=== PATIENT | female | born 1950 | race Caucasian/White ===

== ENCOUNTER 2017-06-20 17:35 | Observation (INO) | payer OTHER ==
[~2017-06-20] VITALS: Ht 170.2 cm; Wt 92.5 kg
[2017-06-20] VITALS (8 sets, daily range): BP systolic 100–114; BP diastolic 58–87; PULSE 78–124; RESP 16–18; TEMP 97.2–98.5; O2SAT 96–98
[~2017-06-20 17:35] MED LIST: ENOX40IN SQ; HYDR-3516 PO
[2017-06-20] MEDS ORDERED: SODIUM CHLORIDE 0.9% FLUSH 10 ML FLUSH IV FLUSH PRN ×2 (18:15→21:15)
[2017-06-20] MEDS ORDERED: ALUMINUM/MAGNESIUM/SIMETH 30 ML CUP PO ONE (18:15)
[2017-06-20] MEDS ORDERED: ONDANSETRON HCL 4 MG/2 ML VIAL IVP ONE (18:15)
[2017-06-20] MEDS ORDERED: LIDOCAINE VISCOUS 2% SOLN 15 ML UDC SWISH-SWAL ONE (18:15)
[2017-06-20] MEDS ORDERED: ATROPINE/SCOPOLAM/HYOSCYAM/PB ELIXIR 10 ML CUP PO ONE (18:15)
--- NOTE | 2017-06-20 18:18 | PD ---
HPI Chief Complaint: GI Complaint Time Seen by Provider: 17:45 Travel History International Travel<30 days: No Contact w/Intl Traveler<30days: No Traveled to known affect area: No History of Present Illness HPI This is a 66-year-old female who presents to the emergency department with nausea and vomiting that's been going on for over a week. Patient reports that she had a knee surgery and broke her wrist and had been on hydrocodone up until 6 days ago. She noticed that she was getting constipated. She doesn't think she's had a bowel movement in 6 days. She been having persistent vomiting, severe, with associated abdominal fullness and a feeling of burning and reflux in her chest, with no associated fevers or chills. She says she feels very weak and she can eat or drink anything. She's never had any abdominal surgeries. She says she used a laxative, and enema and magnesium citrate today and she hasn't had a bowel movement despite this. PFSH Past Medical History Hx Anticoagulant Therapy: Yes Diabetes: No Immunizations Current: Yes Social History Alcohol Use: Yes (2/DAY) Tobacco Use: No (never) Substance Use: No Allergies-Medications (Allergen,Severity, Reaction): Coded Allergies: penicillin G (Unverified Allergy, Severe, 06/20/17) sulfamethoxazole (Unverified Allergy, Severe, 06/20/17) trimethoprim (Unverified Allergy, Severe, 06/20/17) Reported Meds & Prescriptions Reported Meds & Active Scripts Active No Active Prescriptions or Reported Medications Review of Systems Except as stated in HPI: all other systems reviewed are Neg Physical Exam Narrative GENERAL:Well appearing, no acute distress SKIN: Focused skin assessment warm and dry. HEAD: Atraumatic. Normocephalic. EYES: Pupils equal and round. Scleral icterus ENT: Moist mucous membranes. Some yellowing of her tongue. NECK: Trachea midline. CARDIOVASCULAR: Regular rate and rhythm. No murmur appreciated. RESPIRATORY: Clear to auscultation. Breath sounds equal bilaterally. GASTROINTESTINAL: Abdomen soft, hyperactive bowel sounds, diffusely mildly tender to palpation with no rebound or guarding. MUSCULOSKELETAL: Right wrist is in a splint. NEUROLOGICAL: Awake and alert. No obvious cranial nerve deficits. Moving all extremities. PSYCHIATRIC: Appropriate mood and affect; insight and judgment normal. Data Data Last Documented VS Vital Signs Date Time Temp Pulse Resp B/P (MAP) Pulse Ox O2 Delivery O2 Flow Rate FiO2 06/20/17 18:46 96 Room Air 06/20/17 17:42 98.5 109 16 108/72 (84) Orders Orders Complete Blood Count With Diff (06/20/17 18:01) Comprehensive Metabolic Panel (06/20/17 18:01) Lipase (06/20/17 18:) Urinalysis - C+S If Indicated (06/20/17 18:) Ct Abd/Pel W Iv Contrast(Rout) (06/20/17 18:01) Iv Access Insert/Monitor (06/20/17 18:) Ecg Monitoring (06/20/17 18:) Oximetry (06/20/17 18:) Ondansetron Inj (Zofran Inj) (06/20/17 18:15) Sodium Chloride 0.9% Flush (Ns Flush) (06/20/17 18:15) Al-Mag Hy-Si 40-40-4 Mg/Ml Liq (Mag-Al P (06/20/17 18:15) Lidocaine 2% Viscous (Xylocaine 2% Visco (06/20/17 18:15) Pmsku-Akunav-Wakxvd-Pb Liq ( Liq (06/20/17 18:15) Urine Culture (06/20/17 18:15) Direct Bilirubin (06/20/17 18:20) Tylenol (Acetaminophen) (06/20/17 18:53) Us Abdomen Gallbladder (06/20/17 ) Ciprofloxacin 400 Mg Premix (Cipro 400 M (06/20/17 19:00) Labs Laboratory Tests Test 06/20/17 18:15 06/20/17 18:20 Urine Color TERI Urine Turbidity CLEAR Urine pH 5.0 Urine Specific [place] 1.035 Urine Protein 30 mg/dL Urine Glucose (UA) 100 mg/dL Urine Ketones 80 OR GREATER mg/dL Urine Occult Blood TRACE Urine Nitrite POS Urine Bilirubin LARGE Urine Leukocyte Esterase TRACE Urine RBC 0-3 /hpf Urine WBC 15-19 /hpf Urine Squamous Epithelial Cells 6-8 /hpf Urine Bacteria FEW /hpf Urine Mucus FEW /lpf Microscopic Urinalysis Comment CULTURE INDICATED Blood Urea Nitrogen 16 MG/DL Creatinine 0.89 MG/DL Random Glucose 117 MG/DL Total Protein 6.9 GM/DL Albumin 3.3 GM/DL Calcium Level 9.5 MG/DL Alkaline Phosphatase 465 U/L Aspartate Amino Transf (AST/SGOT) 473 U/L Alanine Aminotransferase (ALT/SGPT) 870 U/L Total Bilirubin 9.1 MG/DL Direct Bilirubin 7.3 MG/DL Sodium Level 138 MEQ/L Potassium Level 3.6 MEQ/L Chloride Level 99 MEQ/L Carbon Dioxide Level 26.6 MEQ/L Anion Gap 12 MEQ/L Estimat Glomerular Filtration Rate 63 ML/MIN Lipase 226 U/L MDM Medical Decision Making Medical Screen Exam Complete: Yes Emergency Medical Condition: Yes Differential Diagnosis Bowel obstruction, gastritis, GERD, constipation, hepatitis, choledocholithiasis , malignancy Narrative Course This is a 66-year-old female who presents to the emergency department with vomiting, poor oral intake, abdominal discomfort and constipation that's been going on for nearly a week. She appears jaundiced on exam. She was placed on a monitor and an IV was established. She has a benign exam. CT abdomen and pelvis was ordered. At this time differential is broad. Patient will be evaluated by oncoming provider. Scripts No Active Prescriptions or Reported Meds Anna Marie Brooks MD Jun 20, 2017 18:18
[2017-06-20 18:33] LABS: GLUCOSE,URINE 100 mg/dL (NEG); KETONE, URINE 80 OR GREATER mg/dL (NEG); NITRITE,URINE POS (NEG)
[2017-06-20 18:38] LABS: BLOOD, URINE TRACE (NEG)
[2017-06-20 18:39] LABS: MUCUS URINE FEW /lpf (OCC); RBC, URINE 0-3 /hpf (0-3); URINE COLOR AMBER (YELLW/STRAW)
[2017-06-20 18:40] LABS: BACTERIA, URINE FEW /hpf; COMMENT (UR) CULTURE INDICATED; CULTURE IF INDICATED CULTURE INDICATED; WBC, URINE 15-19 /hpf (0-5)
[2017-06-20 18:43] LABS: CHLORIDE 99 MEQ/L (98-107); POTASSIUM 3.6 MEQ/L (3.5-5.1); SODIUM (NA) 138 MEQ/L (136-145)
[2017-06-20 18:46] LABS: ANION GAP 12 MEQ/L (5-15); BICARBONATE 26.6 MEQ/L (21.0-32.0)
[2017-06-20 18:47] LABS: BLOOD UREA NITROGEN 16 MG/DL (7-18)
[2017-06-20 18:49] LABS: ALT (GPT) 870 U/L (10-53); AST (GOT) 473 U/L (15-37); GLOMERULAR FILTRATION RATE 63 ML/MIN (>89)
[2017-06-20 18:51] LABS: TOTAL BILIRUBIN ADULT 9.1 MG/DL (0.2-1.0)
[2017-06-20 18:52] LABS: ALKALINE PHOSPHATASE 465 U/L (45-117)
[2017-06-20] MEDS ORDERED: CIPROFLOXACIN 400 MG PREMIX 200 ML IV ONE (19:00)
[2017-06-20 19:02] LABS: HEMATOCRIT 41.7 % (35.0-46.0); MEAN CELL VOLUME 92.7 FL (80.0-100.0); MEAN CORPUSCULAR HGB CONC 33.5 % (32.0-36.0); PLATELET COUNT 240 TH/MM3 (150-450); RED CELL DISTRIBUTION WIDTH 13.9 % (11.6-17.2); WHITE BLOOD COUNT 5.5 TH/MM3 (4.0-11.0)
[2017-06-20] MEDS ORDERED: IOHEXOL 350 MG/ML 10 ML VIAL (for RAD DIAG) IVCONTRAST ONE (19:04)
[2017-06-20 19:05] LABS: HEMO FLAGS AUTO DIFF
[2017-06-20 19:29] LABS: EOSINOPHILS 1 % (0-4); NEUTROPHIL # MANUAL DIFF 3.4 TH/MM3 (1.8-7.7); POLYS (SEG NEUTROPHILS) 61 % (16-70); STOMATOCYTES 1+ (NORMAL); WBC DIFF SAMPLE 100
[2017-06-20 19:30] LABS: PLATELET ESTIMATE SMEAR NORMAL (NORMAL); PLATELET MORPHOLOGY NORMAL (NORMAL); SCAN/DIFF FINAL DIFF MANUAL
--- NOTE | 2017-06-20 20:10 | RADRPT ---
EXAM DATE/TIME: 06/20/2017 18:59 [facility] COMPARISON: No previous studies available for comparison. INDICATIONS : Abdominal pain, constipation, nausea, and vomiting. Slight jaundice. IV CONTRAST: 100 cc Omnipaque 350 (iohexol) IV ORAL CONTRAST: No oral contrast ingested. RADIATION DOSE: 20.46 CTDIvol (mGy) MEDICAL HISTORY : None SURGICAL HISTORY : None. ENCOUNTER: Initial ACUITY: 1 day PAIN SCALE: 7/10 LOCATION: abdomen TECHNIQUE: Volumetric scanning of the abdomen and pelvis was performed. Using automated exposure control and ad justment of the mA and/or kV according to patient size, radiation dose was kept as low as reasonably achievable to obtain optimal diagnostic quality images. DICOM format image data is available electro nically for review and comparison. FINDINGS: LOWER LUNGS: The visualized lower lungs are clear. LIVER: There are several small subcentimeter hypodensity seen in the liver. The gallbladder is not distended . Biliary duct dilatation is not seen. SPLEEN: Normal size without lesion. PANCREAS: Within normal limits. KIDNEYS: Normal in size and shape. There is no mass, stone or hydronephrosis. ADRENAL GLANDS: Within normal limits. VASCULAR: There is no aortic aneurysm. BOWEL/MESENTERY: There are few scattered colonic diverticula without inflammatory change. ABDOMINAL WALL: Within normal limits. RETROPERITONEUM: There is no lymphadenopathy. BLADDER: No wall thickening or mass. REPRODUCTIVE: The patient appears to be status post hysterectomy. INGUINAL: There is no lymphadenopathy or hernia. MUSCULOSKELETAL: There is degenerative change in the lumbar spine. CONCLUSION: 1. No acute abnormality is seen. 2. Small subcentimeter hypodensities in the liver. These are nonspecific. Statistically, they likely represent cysts or hemangiomas. Juan Juárez MD on June 20, 2017 at 20:05 Board Certified Radiologist. This report was verified electronically.
--- NOTE | 2017-06-20 20:42 | RADRPT ---
EXAM DATE/TIME: 06/20/2017 19:33 [facility] COMPARISON: CT ABDOMEN & PELVIS W CONTRAST, June 20, 2017, 18:59. INDICATIONS : Evaluate common bile duct. MEDICAL HISTORY : Gastroesophageal reflux disease. Anticoagulant therapy. SURGICAL HISTORY : Right foot bunionectomy. Hammer toe repair. ENCOUNTER: Initial ACUITY: 1 day PAIN SCORE: 2/10 LOCATION: Right upper quadrant MEASUREMENTS: LIVER: 13.8 cm length COMMON DUCT: 4 mm RIGHT KIDNEY: 10.0 x 5.3 x 4.8 cm FINDINGS: LIVER: Normal echotexture without focal lesion or ductal dilatation. The subcentimeter hepatic lesions seen on the CT examination are not seen on ultrasound. COMMON DUCT: No intraluminal mass or stone visualized. GALLBLADDER: Contains no stones, demonstrates no wall thickening or pericholecystic fluid. PANCREAS: The visualized portions are within normal limits. RIGHT KIDNEY: No evidence of hydronephrosis, stone, or mass. CONCLUSION: No acute disease. Juan Juárez MD on June 20, 2017 at 20:39 Board Certified Radiologist. This report was verified electronically.
--- NOTE | 2017-06-20 20:54 | PD ---
Data Data Last Documented VS Vital Signs Date Time Temp Pulse Resp B/P (MAP) Pulse Ox O2 Delivery O2 Flow Rate FiO2 06/20/17 18:46 96 Room Air 06/20/17 17:42 98.5 109 16 108/72 (84) Orders Orders Complete Blood Count With Diff (06/20/17 18:01) Comprehensive Metabolic Panel (06/20/17 18:01) Lipase (06/20/17 18:) Urinalysis - C+S If Indicated (06/20/17 18:) Ct Abd/Pel W Iv Contrast(Rout) (06/20/17 18:01) Iv Access Insert/Monitor (06/20/17 18:) Ecg Monitoring (06/20/17 18:) Oximetry (06/20/17 18:) Ondansetron Inj (Zofran Inj) (06/20/17 18:15) Sodium Chloride 0.9% Flush (Ns Flush) (06/20/17 18:15) Al-Mag Hy-Si 40-40-4 Mg/Ml Liq (Mag-Al P (06/20/17 18:15) Lidocaine 2% Viscous (Xylocaine 2% Visco (06/20/17 18:15) Mscza-Lgejsx-Tizytg-Pb Liq ( Liq (06/20/17 18:15) Urine Culture (06/20/17 18:15) Direct Bilirubin (06/20/17 18:20) Tylenol (Acetaminophen) (06/20/17 18:53) Us Abdomen Gallbladder (06/20/17 ) Ciprofloxacin 400 Mg Premix (Cipro 400 M (06/20/17 19:00) Iohexol 350 Inj (Omnipaque 350 Inj) (06/20/17 19:04) Labs Laboratory Tests Test 06/20/17 18:15 06/20/17 18:20 Urine Color TERI Urine Turbidity CLEAR Urine pH 5.0 Urine Specific [place] 1.035 Urine Protein 30 mg/dL Urine Glucose (UA) 100 mg/dL Urine Ketones 80 OR GREATER mg/dL Urine Occult Blood TRACE Urine Nitrite POS Urine Bilirubin LARGE Urine Leukocyte Esterase TRACE Urine RBC 0-3 /hpf Urine WBC 15-19 /hpf Urine Squamous Epithelial Cells 6-8 /hpf Urine Bacteria FEW /hpf Urine Mucus FEW /lpf Microscopic Urinalysis Comment CULTURE INDICATED White Blood Count 5.5 TH/MM3 Red Blood Count 4.50 MIL/MM3 Hemoglobin 14.0 GM/DL Hematocrit 41.7 % Mean Corpuscular Volume 92.7 FL Mean Corpuscular Hemoglobin 31.0 PG Mean Corpuscular Hemoglobin Concent 33.5 % Red Cell Distribution Width 13.9 % Platelet Count 240 TH/MM3 Mean Platelet Volume 9.8 FL CBC Comment AUTO DIFF Differential Total Cells Counted 100 Neutrophils % (Manual) 61 % Lymphocytes % 30 % Monocytes % 8 % Eosinophils % 1 % Neutrophils # (Manual) 3.4 TH/MM3 Differential Comment FINAL DIFF MANUAL Platelet Estimate NORMAL Platelet Morphology Comment NORMAL Stomatocytes 1+ Blood Urea Nitrogen 16 MG/DL Creatinine 0.89 MG/DL Random Glucose 117 MG/DL Total Protein 6.9 GM/DL Albumin 3.3 GM/DL Calcium Level 9.5 MG/DL Alkaline Phosphatase 465 U/L Aspartate Amino Transf (AST/SGOT) 473 U/L Alanine Aminotransferase (ALT/SGPT) 870 U/L Total Bilirubin 9.1 MG/DL Direct Bilirubin 7.3 MG/DL Sodium Level 138 MEQ/L Potassium Level 3.6 MEQ/L Chloride Level 99 MEQ/L Carbon Dioxide Level 26.6 MEQ/L Anion Gap 12 MEQ/L Estimat Glomerular Filtration Rate 63 ML/MIN Lipase 226 U/L Acetaminophen Level LESS THAN 2.0 MCG/ML MDM Supervised Visit with DOROTHY: No Narrative Course The patient was initially evaluated by the previous provider and sent out to me at the beginning of my shift pending labs, imaging, and disposition. See her note for further details. Briefly this is a 66-year-old female who is here for evaluation of constipation , nausea, and vomiting. The patient has not had a bowel movement for about 1 week. About 2 weeks ago she had right foot surgery by Dr. Shabazz. Shortly afterwards she fell while using a mobility device and fractured her right wrist which is being managed nonoperatively. She was on narcotic pain medication, however has not taken a dose in over a week. On exam the previous provider noted the patient to be jaundice. Her abdominal exam was benign. Labs are remarkable for AST 473, ALT 870, alkaline phosphatase 465, T bili 9.1, direct bili 7.3. UA shows positive nitrites, large bilirubin, trace leukocyte esterase, 15-19 wbc 's, 6-8 epithelial cells, few bacteria, 8o or greater ketones Tylenol level is normal. CT abdomen pelvis: CONCLUSION: 1. No acute abnormality is seen. 2. Small subcentimeter hypodensities in the liver. These are nonspecific. Statistically, they likely represent cysts or hemangiomas. Right upper quadrant ultrasound: CONCLUSION: No acute disease. Patient was made aware of all findings. She took mag citrate and an enema prior to coming to the emergency department, and on my assessment she is having a bowel movement. She remains tachycardic with a heart rate in the 120s. She was written for more IV fluids and will be admitted for further treatment and evaluation of transaminitis, hyperbilirubinemia. She denies taking Tylenol or medications containing acetaminophen in excess. Her Tylenol level is negative. She was given a dose of Cipro for her UA findings. Case discussed with hospitalist Dr. Quintana who will admit the patient to her service. Diagnosis Primary Impression: Hyperbilirubinemia Additional Impressions: Transaminitis UTI (urinary tract infection) Qualified Codes: N39.0 - Urinary tract infection, site not specified Nausea and vomiting Qualified Codes: R11.2 - Nausea with vomiting, unspecified Admitting Information Admitting Physician Requests: Admit Scripts No Active Prescriptions or Reported Meds Cesar Martinez MD Jun 20, 2017 20:54
[2017-06-20] MEDS ORDERED: MAGNESIUM HYDROXIDE SUSP 30 ML CUP PO PRN (21:15)
[2017-06-20] MEDS ORDERED: ACETAMINOPHEN 325 MG TAB PO PRN (21:15)
[2017-06-20] MEDS ORDERED: BISACODYL 10 MG SUPP RECTAL PRN (21:15)
[2017-06-20] MEDS ORDERED: LACTULOSE SYRUP 20 GM/30 ML CUP PO PRN (21:15)
[2017-06-20] MEDS ORDERED: NALOXONE HCL 0.4 MG/ML AMP IV PUSH PRN (21:15)
[2017-06-20] MEDS ORDERED: SENNOSIDES 8.6 MG TAB PO PRN (21:15)
[2017-06-20] MEDS: SODIUM CHLOR 0.9% 1000 ML INJ 1,000 ML IV SCH (23:24)
[2017-06-21] MEDS: SODIUM CHLOR 0.9% 1000 ML INJ 1,000 ML IV SCH ×2 (05:05→15:35)
[2017-06-21] MEDS: ONDANSETRON HCL 4 MG/2 ML VIAL IVP PRN (05:18)
[2017-06-21 06:49] LABS: BASOPHIL % 0.7 % (0.0-2.0); EOSINOPHIL # 0.1 TH/MM3 (0-0.4); HEMATOCRIT 36.9 % (35.0-46.0); LYMPH % 23.1 % (9.0-44.0); LYMPHOCYTE # 1.1 TH/MM3 (1.0-4.8); MEAN CELL VOLUME 92.1 FL (80.0-100.0); MEAN CORPUSCULAR HGB CONC 33.7 % (32.0-36.0); MONO % 9.4 % (0.0-8.0); NEUT % 63.8 % (16.0-70.0); PLATELET COUNT 198 TH/MM3 (150-450); RED CELL DISTRIBUTION WIDTH 13.8 % (11.6-17.2); WHITE BLOOD COUNT 4.6 TH/MM3 (4.0-11.0)
[2017-06-21 06:59] LABS: CHLORIDE 104 MEQ/L (98-107); POTASSIUM 3.6 MEQ/L (3.5-5.1); SODIUM (NA) 140 MEQ/L (136-145)
[2017-06-21 07:01] LABS: HEMO FLAGS AUTO DIFF
[2017-06-21 07:18] LABS: ALKALINE PHOSPHATASE 413 U/L (45-117); ALT (GPT) 749 U/L (10-53); ANION GAP 11 MEQ/L (5-15); AST (GOT) 407 U/L (15-37); BLOOD UREA NITROGEN 16 MG/DL (7-18); GLOMERULAR FILTRATION RATE 66 ML/MIN (>89); TOTAL BILIRUBIN ADULT 8.7 MG/DL (0.2-1.0)
[2017-06-21 07:34] LABS: SCAN/DIFF AUTO DIFF CONFIRMED
[2017-06-21 08:00] VITALS: BP 106/68; PULSE 79; RESP 16; TEMP 97.7; O2SAT 96
[2017-06-21] MEDS: SODIUM CHLORIDE 0.9% FLUSH 10 ML FLUSH IV FLUSH SCH ×2 (08:40→21:31)
[2017-06-21] MEDS: DOCUSATE SODIUM 50 MG/SENNA 8.6 MG TAB PO SCH ×2 (08:40→21:30)
[2017-06-21 10:27] LABS: TRANSFERRIN IRON PROFILE 168 MG/DL (200-360)
--- NOTE | 2017-06-21 11:31 | HHI.HP ---
[facility] Service [facility] Primary Care Physician Antonio Webb MD Admission Diagnosis hyperbilirubinemia, transaminitis, UTI, nausea and vomiting Diagnoses: Chief Complaint: Nausea, vomiting and constipation Travel History International Travel<30 Days: No Contact w/Intl Traveler <30 Da: No Traveled to Known Affected Are: No History of Present Illness 66-year-old female who presented to the emergency room with complaint of constipation, nausea and vomiting. Patient reports her symptoms started about a week ago. She has been taking Ragland for pain due to recent right foot surgery a few weeks ago. She again fell last week injuring her right wrist. She was taking Ragland every 4 hours. She resumed taking the pain medication but reports not taking it for the past few days. She initially attributed her symptoms to constipation from the pain medications. She is having persistent nausea but no vomiting today. She reports GERD symptoms as well which is unusual for her. She denies any abdominal pain. She took mag citrate prior to arrival and has since had multiple bowel movements. Workup in the emergency room revealed transaminitis with markedly elevated bilirubin. No history of hepatitis. Review of Systems Constitutional: DENIES: Fever, Chills Respiratory: DENIES: Cough, Shortness of breath Cardiovascular: DENIES: Chest pain, Palpitations Gastrointestinal: COMPLAINS OF: Nausea, Vomiting, DENIES: Abdominal pain Except as stated in HPI: all other systems reviewed are Neg Past Family Social History Past Medical History None Past Surgical History Right toe bunionectomy and pinning Reported Medications Reported Meds & Active Scripts Active No Active Prescriptions or Reported Medications Allergies: Coded Allergies: penicillin G (Unverified Allergy, Severe, 06/20/17) sulfamethoxazole (Unverified Allergy, Severe, 06/20/17) trimethoprim (Unverified Allergy, Severe, 06/20/17) Family History Mother of old age. History of Alzheimer's. Father with history of stroke. Social History Denies tobacco. Admits to a couple of glasses of wine daily. Physical Exam Vital Signs Vital Signs Date Time Temp Pulse Resp B/P (MAP) Pulse Ox O2 Delivery O2 Flow Rate FiO2 06/21/17 08:00 97.7 79 16 106/68 (81) 96 06/20/17 23:45 97.2 78 18 114/87 (96) 97 06/20/17 23:30 06/20/17 23:25 80 16 102/59 (73) 97 Room Air 06/20/17 22:00 80 16 114/60 (78) 97 Room Air 06/20/17 21:00 124 16 100/65 (77) 98 Room Air 06/20/17 20:00 80 18 112/58 (76) 98 Room Air 06/20/17 19:00 18 06/20/17 19:00 88 18 112/63 (79) 97 Room Air 06/20/17 18:46 96 Room Air 06/20/17 17:42 98.5 109 16 108/72 (84) 97 Physical Exam GENERAL: This is a well-nourished, well-developed patient, in no apparent distress. Mild jaundice. SKIN: No rashes, ecchymoses or lesions. Cool and dry. HEAD: Atraumatic. Normocephalic. No temporal or scalp tenderness. EYES: Pupils equal round and reactive. Extraocular motions intact. Mild scleral icterus. No injection or drainage. ENT: Nose without bleeding, purulent drainage or septal hematoma. Throat without erythema, tonsillar hypertrophy or exudate. Uvula midline. Airway patent. NECK: Trachea midline. No JVD or lymphadenopathy. Supple, nontender, no meningeal signs. CARDIOVASCULAR: Regular rate and rhythm without murmurs, gallops, or rubs. RESPIRATORY: Clear to auscultation. Breath sounds equal bilaterally. No wheezes , rales, or rhonchi. GASTROINTESTINAL: Abdomen soft, non-tender, nondistended. No hepato-splenomegaly , or palpable masses. No guarding. MUSCULOSKELETAL: Extremities without clubbing, cyanosis, or edema. No joint tenderness, effusion, or edema noted. No calf tenderness. Negative Homans sign bilaterally. NEUROLOGICAL: Awake and alert. Cranial nerves II through XII intact. Motor and sensory grossly within normal limits. Five out of 5 muscle strength in all muscle groups. Normal speech. Laboratory Laboratory Tests Test 06/20/17 18:15 06/20/17 18:20 06/20/17 22:10 06/21/17 06:30 Urine Color TERI Urine Turbidity CLEAR Urine pH 5.0 Urine Specific [place] 1.035 Urine Protein 30 Urine Glucose (UA) 100 Urine Ketones 80 OR GREATER Urine Occult Blood TRACE Urine Nitrite POS Urine Bilirubin LARGE Urine Leukocyte Esterase TRACE Urine RBC 0-3 Urine WBC 15-19 Urine Squamous Epithelial Cells 6-8 Urine Bacteria FEW Urine Mucus FEW Microscopic Urinalysis Comment CULTURE INDICATED White Blood Count 5.5 4.6 Red Blood Count 4.50 4.00 Hemoglobin 14.0 12.4 Hematocrit 41.7 36.9 Mean Corpuscular Volume 92.7 92.1 Mean Corpuscular Hemoglobin 31.0 31.0 Mean Corpuscular Hemoglobin Concent 33.5 33.7 Red Cell Distribution Width 13.9 13.8 Platelet Count 240 198 Mean Platelet Volume 9.8 9.6 CBC Comment AUTO DIFF AUTO DIFF Differential Total Cells Counted 100 Neutrophils % (Manual) 61 Lymphocytes % 30 Monocytes % 8 Eosinophils % 1 Neutrophils # (Manual) 3.4 Differential Comment FINAL DIFF MANUAL AUTO DIFF CONFIRMED Platelet Estimate NORMAL Platelet Morphology Comment NORMAL Stomatocytes 1+ Blood Urea Nitrogen 16 16 Creatinine 0.89 0.86 Random Glucose 117 108 Total Protein 6.9 5.8 Albumin 3.3 2.9 Calcium Level 9.5 9.5 Alkaline Phosphatase 465 413 Aspartate Amino Transf (AST/SGOT) 473 407 Alanine Aminotransferase (ALT/SGPT) 870 749 Total Bilirubin 9.1 8.7 Direct Bilirubin 7.3 Sodium Level 138 140 Potassium Level 3.6 3.6 Chloride Level 99 104 Carbon Dioxide Level 26.6 25.0 Anion Gap 12 11 Estimat Glomerular Filtration Rate 63 66 Lipase 226 Acetaminophen Level LESS THAN 2.0 Hepatitis A IgM Antibody NEGATIVE Hepatitis B Surface Antigen NEGATIVE Hepatitis B Core IgM Antibody NEGATIVE Hepatitis C Antibody NEGATIVE Neutrophils (%) (Auto) 63.8 Lymphocytes (%) (Auto) 23.1 Monocytes (%) (Auto) 9.4 Eosinophils (%) (Auto) 3.0 Basophils (%) (Auto) 0.7 Neutrophils # (Auto) 3.0 Lymphocytes # (Auto) 1.1 Monocytes # (Auto) 0.4 Eosinophils # (Auto) 0.1 Basophils # (Auto) 0.0 Test 06/21/17 08:20 Iron Level 85 Total Iron Binding Capacity 235 Percent Iron Saturation 36.1 Date/Time Source Procedure Growth Status 06/20/17 18:15 Urine Clean Catch Urine Culture Pending Received Result Diagram: 06/21/17 0630 06/21/17 0630 Imaging Last Impressions Abdomen/Pelvis CT 06/20/17 1801 Signed Impressions: Service Date/Time: Tuesday, June 20, 2017 18:59 - CONCLUSION: 1. No acute abnormality is seen. 2. Small subcentimeter hypodensities in the liver. These are nonspecific. Statistically, they likely represent cysts or hemangiomas. Juan Juárez MD Gall Bladder Ultrasound 06/20/17 0000 Signed Impressions: Service Date/Time: Tuesday, June 20, 2017 19:33 - CONCLUSION: No acute disease. Juan Juárez MD Caprini VTE Risk Assessment Caprini VTE Risk Assessment: Mod/High Risk (score >= 2) Caprini Risk Assessment Model Point Value = 1 Point Value = 2 Point Value = 3 Point Value = 5 Age 41-60 Minor surgery BMI > 25 kg/m2 Swollen legs Varicose veins or History of unexplained or recurrent spontaneous Oral contraceptives or hormone replacement Sepsis (< 1 month) Serious lung disease, including pneumonia (< 1 month) Abnormal pulmonary function Acute myocardial infarction Congestive heart failure (< 1 month) History of inflammatory bowel disease Medical patient at bed rest Age 61-74 Arthroscopic surgery Major open surgery (> 45 min) Laparoscopic surgery (> 45 min) Malignancy Confined to bed (> 72 hours) Immobilizing plaster cast Central venous access Age >= 75 History of VTE Family history of VTE Factor V Leiden Prothrombin [id number] Lupus anticoagulant Anticardiolipin antibodies Elevated serum homocysteine Heparin-induced thrombocytopenia Other congenital or acquired thrombophilia Stroke (< 1 month) Elective arthroplasty Hip, pelvis, or leg fracture Acute spinal cord injury (< 1 month) Prophylaxis Regimen Total Risk Factor Score Risk Level Prophylaxis Regimen 0-1 Low Early ambulation 2 Moderate Order ONE of the following: *Sequential Compression Device (SCD) *Heparin 5000 units SQ BID 3-4 Higher Order ONE of the following medications: *Heparin 5000 units SQ TID *Enoxaparin/Lovenox 40 mg SQ daily (WT < 150 kg, CrCl > 30 mL/min) *Enoxaparin/Lovenox 30 mg SQ daily (WT < 150 kg, CrCl > 10-29 mL/min) *Enoxaparin/Lovenox 30 mg SQ BID (WT < 150 kg, CrCl > 30 mL/min) AND/OR *Sequential Compression Device (SCD) 5 or more Highest Order ONE of the following medications: *Heparin 5000 units SQ TID (Preferred with Epidurals) *Enoxaparin/Lovenox 40 mg SQ daily (WT < 150 kg, CrCl > 30 mL/min) *Enoxaparin/Lovenox 30 mg SQ daily (WT < 150 kg, CrCl > 10-29 mL/min) *Enoxaparin/Lovenox 30 mg SQ BID (WT < 150 kg, CrCl > 30 mL/min) AND *Sequential Compression Device (SCD) Assessment and Plan Problem List: (1) Transaminitis ICD Code: R74.0 - Nonspecific elevation of levels of transaminase and lactic acid dehydrogenase [LDH] Status: Acute (2) Hyperbilirubinemia ICD Code: E80.6 - Other disorders of bilirubin metabolism Status: Acute (3) UTI (urinary tract infection) ICD Code: N39.0 - Urinary tract infection, site not specified Status: Acute (4) Nausea and vomiting ICD Code: R11.2 - Nausea with vomiting, unspecified Status: Acute Assessment and Plan 66-year-old female who presented with nausea, vomiting, and constipation. Patient found to have elevated liver enzymes and jaundice. Etiology is unclear. Elevated LFTs: Bilirubin 9.1, AST in the 400s and ALTs in the 800s on presentation. Etiology is unclear. She has been taking Ragland but have been staying under the daily recommended dose of Tylenol. Could have passed a stone. However has not experienced any pain. Abdominal CT unremarkable except for a small hypodense area in the liver that is likely a cyst. - GI consulted. Follow-up hepatitis profile. - If no improvement n LFT, can consider MRCP. UTI: Continue Cipro. - Follow-up cultures. Discussed Condition With Follow-up GI input. Repeat LFTs in a.m. Further workup inpatient versus outpatient to be determined based on the results. Problem Qualifiers (1) UTI (urinary tract infection): Qualified Codes: N39.0 - Urinary tract infection, site not specified (2) Nausea and vomiting: Qualified Codes: R11.2 - Nausea with vomiting, unspecified Elmer Grubbs MD Jun 21, 2017 11:31
[2017-06-21 12:00] VITALS: BP 98/69; PULSE 99; RESP 18; TEMP 96.5; O2SAT 97
[2017-06-21 16:00] VITALS: BP 99/54; PULSE 70; RESP 16; TEMP 97.5; O2SAT 97
--- NOTE | 2017-06-21 18:41 | MB ---
cc: VINICIUS ARNOLD MD DATE OF CONSULTATION 06/21/17 [address] Quintana. REASON FOR REFERRAL Liver function tests. HISTORY OF PRESENT ILLNESS Thank you for the consultation. This is a nice 66-year-old lady who came into the emergency room complaining of constipation, nausea and vomiting. She stated that this has been going on for a week. She denied any other problem. She was taking [place] for pain after a foot surgery. She came to the emergency room and was found to have significant elevated liver function tests. She is denying any recent exposure that would put her at risk for hepatitis B or C. She denied eating out. She does not have new sexual partner and did not use any drugs. The patient overall seems to be comfortable but generally fatigued. PAST MEDICAL HISTORY Negative except bunionectomy ALLERGIES [facility]ACTRIM [facility] FAMILY HISTORY Significant for Alzheimer's and stroke. SOCIAL HISTORY Negative for tobacco. She drinks about two glass of wine daily. MEDICATIONS None on a regular basis. REVIEW OF SYSTEMS All 12-point negative except HPI. PHYSICAL EXAMINATION GENERAL: Alert, oriented in no acute distress. VITAL SIGNS: Stable. HEENT: Pupils are round, reactive to light. NECK: Supple. CHEST: Clear to auscultation and percussion. CARDIAC: Regular rate and rhythm. EYES: Sclerae icteric. ABDOMEN: Soft, nondistended. Positive bowel sounds. No hepatosplenomegaly. No masses and no guarding. EXTREMITIES: No edema, clubbing or cyanosis. NEUROLOGIC: Neurologically intact. PSYCHIATRIC: Psychologically appropriate. LABORATORY DATA White count 4.6, hemoglobin 12.4, platelets 198, total bilirubin on admission was 9.1, today 8.7, AST 473 today is 407, ALT 870 today 749, alk phos 413, albumin 2.9, lipase 229. Normal electrolytes. Acetaminophen was less than two. Serology was negative for A, B & C. IMAGING STUDIES Negative ultrasound of the liver and no abdominal abnormality or liver abnormalities seen except small cyst. ASSESSMENT/PLAN A 66-year-old lady who has fatigue and has significant elevation of liver function tests, questionable etiology. The patient drinks alcohol on a daily basis, so it could be a contributing factor but less likely to be the only factor. She was taking [place] and this could be medicine induced, an infectious process is possible. We will check iron studies and Megan Fletcher. We will check immuno markers to rule out autoimmune hepatitis or other etiology that can cause this. Meanwhile, we will continue supportive care, hydration, avoid unnecessary medication and we will see how she does. We will follow her liver function test. MD SHAHRIAR Alves/ /4:01 PM /6:10 PM
[2017-06-21 21:18] VITALS: BP 117/53; PULSE 73; RESP 18; TEMP 98.6; O2SAT 98
[2017-06-21] MEDS: CIPROFLOXACIN 250 MG TAB PO SCH (21:30)
[2017-06-21 22:00] VITALS: BP 199/66; PULSE 82; RESP 24; TEMP 98.1; O2SAT 98
[2017-06-22] VITALS: BP 117/64; PULSE 81; RESP 18; TEMP 98.3; O2SAT 96
[2017-06-22] MEDS: ONDANSETRON HCL 4 MG/2 ML VIAL IVP PRN (02:04)
[2017-06-22] MEDS: SODIUM CHLOR 0.9% 1000 ML INJ 1,000 ML IV SCH ×2 (02:05→13:15)
[2017-06-22 06:45] LABS: POTASSIUM 3.8 MEQ/L (3.5-5.1)
[2017-06-22 08:00] VITALS: BP 120/72; PULSE 71; RESP 18; TEMP 96.7; O2SAT 95
[2017-06-22 08:09] LABS: BICARBONATE 21.9 MEQ/L (21.0-32.0); INDIRECT BILIRUBIN 1.5 MG/DL (0.0-0.8); TOTAL BILIRUBIN ADULT 8.2 MG/DL (0.2-1.0)
--- NOTE | 2017-06-22 08:34 | HHI.GIFU ---
Subjective Remarks Patient feel better today but still weak no abdominal pain no nausea or vomiting Objective Vitals I&O Vital Signs Date Time Temp Pulse Resp B/P (MAP) Pulse Ox O2 Delivery O2 Flow Rate FiO2 06/22/17 00:00 98.3 81 18 117/64 (81) 96 06/21/17 21:18 98.6 73 18 117/53 (74) 98 06/21/17 16:00 97.5 70 16 99/54 (69) 97 06/21/17 12:00 96.5 99 18 98/69 (79) 97 I/O 06/21/17 06/21/17 06/21/17 06/22/17 06/22/17 06/22/17 07:00 15:00 23:00 07:00 15:00 23:00 Intake Total 600 ml 1430 ml 480 ml Output Total 100 ml Balance 500 ml 1430 ml 480 ml Intake Oral 1080 ml 480 ml IV Total 600 ml 350 ml Output Stool Total 100 ml # Voids 2 4 2 # Bowel Movements 4 1 0 Laboratory Laboratory Tests Test 06/22/17 05:26 Blood Urea Nitrogen 13 Creatinine 0.66 Random Glucose 85 Total Protein 5.4 Albumin 2.6 Calcium Level 8.1 Alkaline Phosphatase 409 Aspartate Amino Transf (AST/SGOT) 331 Alanine Aminotransferase (ALT/SGPT) 642 Total Bilirubin 8.2 Direct Bilirubin 6.7 Sodium Level 139 Potassium Level 3.8 Chloride Level 106 Carbon Dioxide Level 21.9 Anion Gap 11 Estimat Glomerular Filtration Rate 89 Indirect Bilirubin 1.5 Date/Time Source Procedure Growth Status 06/20/17 18:15 Urine Clean Catch Urine Culture - Preliminary Gram Negative Kirit Resulted Physical Exam HEENT: Pupils round and reactive to light; normocephalic; atraumatic; mild jaundice. Throat is clear. NECK: Neck is supple, no JVD, no lymphadenopathy. Scleral icterus CHEST: Chest is clear to auscultation and percussion. CARDIAC: Regular rate and rhythm with no murmur gallop or rubs. ABDOMEN: Soft, nondistended, nontender; no hepatosplenomegaly; bowel sounds are present in all four quadrants. EXTREMITIES: No clubbing, cyanosis, or edema. SKIN: Normal; no rash; no jaundice. EMBROIDERY OPERATOR: No focal deficits; alert and oriented times three. Assessment and Plan Plan Elevated liver function test slightly improving today, questionable etiology, could be viral illness or medicine-related, workup in progress, hepatitis profile was negative so far except Megan-Fletcher pending Seems she has UTI Okay to feed patient as tolerated Repeat liver function test, if this is improving patient can be followed as an outpatient Isabel Medellin MD Jun 22, 2017 08:34
[2017-06-22] MEDS: SODIUM CHLORIDE 0.9% FLUSH 10 ML FLUSH IV FLUSH SCH (09:00)
[2017-06-22] MEDS: CIPROFLOXACIN 250 MG TAB PO SCH (09:00)
[2017-06-22] MEDS: DOCUSATE SODIUM 50 MG/SENNA 8.6 MG TAB PO SCH (09:00)
[2017-06-22] MEDS ORDERED: FAMO1TAB37 PO (10:41)
[2017-06-22] MEDS ORDERED: ZOFR4TAB3 SL (10:41)
[2017-06-22] MEDS ORDERED: CIPR250T52 PO (10:41)
--- NOTE | 2017-06-22 10:42 | HHI.DCPOC ---
Discharge Care Plan Diagnosis: (1) Hyperbilirubinemia (2) Transaminitis (3) UTI (urinary tract infection) (4) Nausea and vomiting Goals to Promote Your Health * To prevent worsening of your condition and complications * To maintain your health at the optimal level Directions to Meet Your Goals Take your medications as prescribed Follow your dietary instruction Follow activity as directed Keep your appointments as scheduled Take your immunizations and boosters as scheduled If your symptoms worsen call your PCP, if no PCP go to Urgent Care Center or Emergency Room Smoking is Dangerous to Your Health. Avoid second hand smoke Call the 24-hour hour crisis hotline for domestic abuse at Elmer Grubbs MD Jun 22, 2017 10:41
--- NOTE | 2017-06-22 10:48 | HHI.PR ---
Subjective Remarks Patient reports she is feeling okay. Tolerating her diet. Anxious to go home. Objective Vitals Vital Signs Date Time Temp Pulse Resp B/P (MAP) Pulse Ox O2 Delivery O2 Flow Rate FiO2 06/22/17 08:00 96.7 71 18 120/72 (88) 95 06/22/17 00:00 98.3 81 18 117/64 (81) 96 06/21/17 21:18 98.6 73 18 117/53 (74) 98 06/21/17 16:00 97.5 70 16 99/54 (69) 97 06/21/17 12:00 96.5 99 18 98/69 (79) 97 I/O 06/21/17 06/21/17 06/21/17 06/22/17 06/22/17 06/22/17 07:00 15:00 23:00 07:00 15:00 23:00 Intake Total 600 ml 1430 ml 480 ml Output Total 100 ml Balance 500 ml 1430 ml 480 ml Intake Oral 1080 ml 480 ml IV Total 600 ml 350 ml Output Stool Total 100 ml # Voids 2 4 2 1 # Bowel Movements 4 1 0 1 Result Diagram: 06/21/17 0630 06/22/17 0526 Objective Remarks GENERAL: This is a well-nourished, well-developed patient, in no apparent distress. CARDIOVASCULAR: Normal rate and regular rhythm without murmurs, gallops, or rubs. RESPIRATORY: Good respiratory efforts. Breath sounds equal and clear to auscultation bilaterally. GASTROINTESTINAL: Abdomen soft, non-tender, non-distended. Normal active bowel sounds MUSCULOSKELETAL: Extremities without cyanosis, or edema. NEURO: Alert & Oriented x4 to person, place, time, situation. Moves all ext x4 PSYCH: Appropriate mood and affect. A/P Problem List: (1) Transaminitis ICD Code: R74.0 - Nonspecific elevation of levels of transaminase and lactic acid dehydrogenase [LDH] Status: Acute (2) Hyperbilirubinemia ICD Code: E80.6 - Other disorders of bilirubin metabolism Status: Acute (3) UTI (urinary tract infection) ICD Code: N39.0 - Urinary tract infection, site not specified Status: Acute (4) Nausea and vomiting ICD Code: R11.2 - Nausea with vomiting, unspecified Status: Acute Assessment and Plan 66-year-old female who presented with nausea, vomiting, and constipation. Patient found to have elevated liver enzymes and jaundice. Bilirubin 9.1, AST in the 400s and ALTs in the 800s on presentation. Etiology is unclear. She has been taking [place] but also drink alcohol. Could have passed a stone. However has not experienced any pain. Abdominal CT unremarkable except for a small hypodense area in the liver that is likely a cyst. Patient has been followed by GI. Hepatitis profile is negative. Immune markers ordered per GI. Patient remained asymptomatic. She tolerated her diet. She is discharged home in good condition to follow-up with GI outpatient. Patient is to repeat labs in a week prior to appointment to GI. Patient was also found to have a UTI. She was treated with Cipro Discharge home in good condition Follow up with: GI Diet: Regular as tolerated. Meds: Per med rec Activity: Regular as tolerated. Patient was advised to not drink alcohol and discontinue [place] as she no longer required this medication. Problem Qualifiers (1) UTI (urinary tract infection): Qualified Codes: N39.0 - Urinary tract infection, site not specified (2) Nausea and vomiting: Qualified Codes: R11.2 - Nausea with vomiting, unspecified Elmer Grubbs MD Jun 22, 2017 10:48
[2017-06-22 12:00] VITALS: BP 115/71; PULSE 81; RESP 14; TEMP 96.1; O2SAT 97
[2017-06-23 01:52] LABS: EBV VCA IgM Negative (Negative)
[2017-06-24 23:53] LABS: MITOCHONDRIAL ABS LESS THAN 20.0 U (<=20.0)
== END 2017-06-22 15:17 | disposition home or self-care (01) ==
LOC: PHED 17:35 → PHEDA 21:17 → PH3B 23:36
PROVIDERS: ADMIT Family Medicine; ATTEND Family Medicine
DX: E80.6 Other disorders of bilirubin metabolism (principal); R74.0 Nonspecific elevation of levels of transaminase and lactic acid dehydrogenase [LDH]; N39.0 Urinary tract infection, site not specified; R11.2 Nausea with vomiting, unspecified; K59.00 Constipation, unspecified; K21.9 Gastro-esophageal reflux disease without esophagitis; R53.1 Weakness; Z79.01 Long term (current) use of anticoagulants; K76.89 Other specified diseases of liver; R79.89 Other specified abnormal findings of blood chemistry; B96.20 Unspecified Escherichia coli [E. coli] as the cause of diseases classified elsewhere
CPT/HCPCS: 74177; 76705; 80048; 80053; 80074; 80076; 80307; 81001; 82248; 82948; 83520; 83540; 83550; 83690; 85007; 85025; 85027; 86038; 86255; 86664; 86665; 87077; 87086; 87186; 96361; 96365; 96375; 96376; 97162; 99285; G0378; G8987; G8988; J0744; J2405; J7030; Q9967